=== PATIENT | male | born 1985 | race African-American/Black ===

== ENCOUNTER 2016-12-11 14:46 | Emergency (ER) | payer OTHER ==
[2016-12-11 15:01] LABS: EOSINOPHIL (%) 1.5 % (0-5); EOSINOPHIL COUNT 0.1 K/uL (0-0.3); IMMATURE GRANULOCYTE (%) 0.4 % (0.0-0.7); INSTRUMENT ABS NEUTROPHIL CT 2.9 K/uL; LYMPHOCYTE COUNT 1.2 K/uL (1.0-2.8); MCH 30.6 PG (29.0-34.0); MCHC 33.8 G/DL (30.0-36.0); MCV 90.5 FL (86-99); MEAN PLAT.VOLUME 10.3 uM^3 (9.0-12.4); MONOCYTE (%) 7.6 % (3-12); MONOCYTE COUNT 0.4 K/uL (0-0.8); NEUTROPHIL (%) 63.3 % (45-76); NEUTROPHIL COUNT 2.9 K/uL (1.8-6.4); PLATELET COUNT 171 K/uL (156-360); RBC DIS.WIDTH-CV 12.2 % (11.8-14.6); RBC DIS.WIDTH-SD 40.6 % (39-53); RED BLOOD COUNT 4.31 M/uL (4.00-5.50); WHITE BLOOD COUNT 4.6 K/uL (4.1-10.2)
[2016-12-11 15:15] LABS: AMYLASE 74 IU/L (1-118); CHLORIDE 105 mEq/L (99-109); SODIUM 142 mEq/L (136-147)
[2016-12-11 15:17] LABS: GLUCOSE 115 mg/dL (70-99)
[2016-12-11 15:18] LABS: ANION GAP 8 MEQ/L (2-14)
[2016-12-11 15:20] LABS: SERUM ETHYL ALCOHOL < 10 mg/dL
[2016-12-11 15:21] LABS: GFR ESTIMATE (CALCULATED) > 59 mL/min/
[2016-12-11 15:22] LABS: UREA NITROGEN (BUN) 15 mg/dL (9-23)
[2016-12-11 15:24] LABS: LIPASE 10 U/L (1.0-51.0)
[2016-12-11 16:23] LABS: ADD MIUA? NO; BILIRUBIN NEGATIVE; BLOOD NEGATIVE; COLOR YELLOW ((YELLOW)); GLUCOSE (STRIP) NEGATIVE; KETONES NEGATIVE; LEUKOCYTES NEGATIVE; NITRITE NEGATIVE; PROTEIN (STRIP) 30; SPECIFIC GRAVITY 1.027 (1.000-1.030); UCUL ADDED? NO; UROBILINOGEN 0.2 MG/DL (0.2-1.0)
[2016-12-11 16:42] LABS: AMPHETAMINE NEGATIVE (500 ng/mL); BARBITURATES NEGATIVE (200 ng/mL); BENZODIAZEPINES NEGATIVE (150 ng/mL); COCAINE NEGATIVE (150 ng/mL); INTERNAL CONTROLS VALID? YES; METHADONE NEGATIVE (200 ng/mL); METHAMPHETAMINE NEGATIVE (500 ng/mL); OPIATES (MORPHINE) NEGATIVE (100 ng/mL); OXYCODONE NEGATIVE (100 ng/mL); PHENCYCLIDINE NEGATIVE (25 ng/mL); PROPOXYPHENE NEGATIVE (300 ng/mL); THC CANNABINOIDS NEGATIVE (50 ng/mL); TRICYCLIC ANTIDEPRESSANTS NEGATIVE (300 ng/mL)
== END 2016-12-11 18:04 ==
LOC: TRA 14:46
PROVIDERS: Emergency Medicine
PROC: 0HQ4XZZ Repair Neck Skin, External Approach (ICD-10-PCS; principal; 2016-12-11)
PROC: 0HQ6XZZ Repair Back Skin, External Approach (ICD-10-PCS; principal; 2016-12-11)
DX: S21.211A Laceration without foreign body of right back wall of thorax without penetration into thoracic cavity, initial encounter (principal); S21.212A Laceration without foreign body of left back wall of thorax without penetration into thoracic cavity, initial encounter; S01.91XA Laceration without foreign body of unspecified part of head, initial encounter; S11.91XA Laceration without foreign body of unspecified part of neck, initial encounter; W26.9XXA Contact with unspecified sharp object(s), initial encounter; W45.8XXA Other foreign body or object entering through skin, initial encounter; Y92.149 Unspecified place in prison as the place of occurrence of the external cause
CPT/HCPCS: 70498; 71010; 71250; 74177; 80048; 81003; 82150; 83690; 85025; 86900; 86901; 94799; 99281; 99285; G0480; J2405; J3010